=== PATIENT | female | born 1940 | race Caucasian/White ===

== ENCOUNTER 2016-08-04 08:07 | Outpatient (CLI) | payer MEDICARE, OTHER | END 2016-08-04 08:08 | disposition home or self-care (01) | DX: I10 Essential (primary) hypertension (principal); E78.2 Mixed hyperlipidemia; E67.3 Hypervitaminosis D; I77.9 Disorder of arteries and arterioles, unspecified; I67.9 Cerebrovascular disease, unspecified ==

== ENCOUNTER 2017-02-06 07:21 | Outpatient (CLI) | payer MEDICARE, OTHER ==
[2017-02-06 12:29] LABS: ALBUMIN/GLOBULIN RATIO 1.7 (1.0-2.2); BILIRUBIN,TOTAL 0.6 mg/dL (0.2-1.0); BUN - BLOOD UREA NITROGEN 30 mg/dL (6-20); CALCIUM 9.3 mg/dL (8.5-10.3); CARBON DIOXIDE - CO2 28 mmol/L (21-32); CHLORIDE 102 mmol/L (101-111); CHOL/HDL RATIO 1.9 (<4.4); CHOLESTEROL 167 mg/dL; CREATININE 1.1 mg/dL (0.4-1.0); GFR - MDRD 48 (>89); GLUCOSE 95 mg/dL (70-100); HDL CHOLESTEROL 90 mg/dL; LDL/HDL RATIO 0.8 (<4.4); POTASSIUM 4.3 mmol/L (3.5-5.0); SODIUM 139 mmol/L (135-145); TOTAL PROTEIN 6.5 g/dL (6.7-8.2); TRIGLYCERIDES 46 mg/dL; VLDL CHOLESTEROL 9 mg/dL
== END 2017-02-06 07:22 | disposition home or self-care (01) ==
LOC: LAB.F 07:21
PROVIDERS: ATTEND Internal Medicine Cardiovascular Disease
DX: E67.3 Hypervitaminosis D (principal); E78.5 Hyperlipidemia, unspecified
CPT/HCPCS: 36415; 80053; 80061; 82306

== ENCOUNTER 2017-10-13 07:08 | Outpatient (CLI) | payer MEDICARE, OTHER ==
[2017-10-13 11:01] LABS: ALBUMIN 3.9 g/dL (3.2-5.5); ALBUMIN/GLOBULIN RATIO 1.3 (1.0-2.2); ALKALINE PHOSPHATASE 45 IU/L (42-121); ALT ALANINE AMINOTRANSFERASE 17 IU/L (10-60); AST ASPARTATE AMINOTRANSFERASE 23 IU/L (10-42); BILIRUBIN,TOTAL 0.7 mg/dL (0.2-1.0); BUN - BLOOD UREA NITROGEN 27 mg/dL (6-20); CALCIUM 9.3 mg/dL (8.5-10.3); CARBON DIOXIDE - CO2 30 mmol/L (21-32); CHLORIDE 101 mmol/L (101-111); CHOL/HDL RATIO 1.9 (<4.4); CHOLESTEROL 145 mg/dL; CREATININE 0.9 mg/dL (0.4-1.0); GFR - MDRD 61 (>89); GLUCOSE 81 mg/dL (70-100); HDL CHOLESTEROL 77 mg/dL; LDL CHOLESTEROL,CALCULATED 52 mg/dL; LDL/HDL RATIO 0.7 (<4.4); SODIUM 138 mmol/L (135-145); TOTAL PROTEIN 6.8 g/dL (6.7-8.2); VLDL CHOLESTEROL 16 mg/dL
== END 2017-10-13 07:09 | disposition home or self-care (01) ==
LOC: LAB.F 07:08
PROVIDERS: ATTEND Internal Medicine Cardiovascular Disease
DX: E78.5 Hyperlipidemia, unspecified (principal); E67.3 Hypervitaminosis D
CPT/HCPCS: 36415; 80053; 80061; 82306; 83721

== ENCOUNTER 2018-06-16 10:54 | Emergency (ER) | payer MEDICARE, OTHER ==
[2018-06-16 11:05] VITALS: BP 182/87
[2018-06-16] MEDS ORDERED: predniSONE 20 MG TABLET PO STA (12:05)
--- NOTE | 2018-06-16 12:08 | ED Physician Documentation ---
History of Present Illness - Stated complaint Stated Complaint: POSS ALLERGIC REACTION - Chief complaint Chief Complaint: Heent - Additonal information Additional information: 77-year-old female presents to the emergency department with concern for an allergic reaction. The patient has multiple food allergies and recently ate a strawberry Thursday and both of which she is allergic to. Since then the patient reports a abnormal sensation in her throat. The patient denies any drooling, trouble swallowing, tongue swelling, hot potato voice or shortness of breath or skin changes. No improvement with Benadryl. No other associated s ymptoms. Symptoms are described as mild and ongoing for the past several days. Review of Systems Eyes: denies: Discharge Ears: denies: Ear pain Nose: denies: Congestion Throat: denies: Sore throat, Swollen tonsils, Swallowed foreign body Cardiac: denies: Chest pain / pressure Respiratory: denies: Cough GI: denies: Abdominal Pain Skin: denies: Rash PD PAST MEDICAL HISTORY - Past Medical History Cardiovascular: Hypertension, High cholesterol, Atrial fibrillation - Past Surgical History Past Surgical History: Yes - Present Medications Home Medications: Ambulatory Orders Medication Instructions Recorded Confirmed Alendronate [Fosamax] 70 mg PO Q7D 06/16/18 06/16/18 Apixaban [Eliquis] 5 mg PO BID 06/16/18 06/16/18 Beclomethasone Dipropionate 42 gm NS DAILY 06/16/18 06/16/18 [Beconase Aq] Estrogens, Conjugated [Premarin] 0.45 mg PO 06/16/18 Lorazepam [Ativan] 240 mg ORAL DAILY 06/16/18 06/16/18 Losartan [Cozaar] 50 mg PO DAILY 06/16/18 06/16/18 Metoprolol Tartrate 50 mg ORAL DAILY 06/16/18 06/16/18 diphenhydrAMINE [Benadryl] 25 mg PO DAILY PM 06/16/18 06/16/18 predniSONE [Prednisone] 40 mg PO DAILY #10 tablet 06/16/18 - Allergies Allergies/Adverse Reactions: Allergies Allergy/AdvReac Type Severity Reaction Status Date / Time amoxicillin Allergy Hives Verified 06/16/18 11:06 pear Allergy Hives Verified 06/16/18 11:06 Penicillins Allergy Hives Verified 06/16/18 11:05 strawberry Allergy Hives Verified 06/16/18 11:06 - Social History Does the pt smoke?: No Smoking Status: Never smoker Does the pt drink ETOH?: No Does the pt have substance abuse?: No - Immunizations Immunizations are current?: Yes PD ED PE NORMAL - General General: Alert and oriented X 3, No acute distress - HEENT HEENT: Atraumatic, PERRL, EOMI, Ears normal, Other (The tongue is within normal limits, posterior pharynx is within normal limits, there is no voice changes, stridor or trismus) - Cardiac Cardiac: RRR, Strong equal pulses - Derm Derm: Normal color - Extremities Extremities: No deformity - Neuro Neuro: Alert and oriented X 3, Normal speech - Psych Psych: Normal affect Results - Vitals Vitals: Vital Signs - 24 hr 06/16/18 11:01 Temperature 35.6 C L Heart Rate 84 Respiratory 14 Rate Blood Pressure 182/87 H O2 Saturation 97 Oxygen O2 Source Room air PD MEDICAL DECISION MAKING - ED course ED course: The patient appears to have a mild reaction to an allergen. The patient will be put on a course of steroids and appears appropriate for discharge and ongoing outpatient management. I discussed warning signs recommended returning to the emergency department immediately for any worsening or any concerns. Departure - Departure Disposition: 01 Home, Self Care Clinical Impression: Allergic reaction Qualifiers: Encounter type: initial encounter Qualified Code(s): T78.40XA - Allergy, unspecified, initial encounter Condition: Good Instructions: First Aid Allergic React, ED Allergic React Food Follow-Up: Sherwin Lunsford MD [Primary Care Provider] - Within 1 week Prescriptions: predniSONE [Prednisone] 40 mg PO DAILY #10 tablet Comments: Please return to the emergency department for any worsening or any concerns Discharge Date/Time: 06/16/18 12:28
== END 2018-06-16 12:28 | disposition home or self-care (01) ==
LOC: ED 10:54
DX: T78.40XA Allergy, unspecified, initial encounter (principal); X58.XXXA Exposure to other specified factors, initial encounter; I10 Essential (primary) hypertension; E78.00 Pure hypercholesterolemia, unspecified; Z91.02 Food additives allergy status
CPT/HCPCS: 99283; J7512

== ENCOUNTER 2019-02-15 07:57 | Outpatient (CLI) | payer MEDICARE, OTHER ==
[2019-02-15 10:05] LABS: ALBUMIN 4.3 g/dL (3.2-5.5); ALBUMIN/GLOBULIN RATIO 1.7 (1.0-2.2); ALKALINE PHOSPHATASE 38 IU/L (42-121); ALT ALANINE AMINOTRANSFERASE 15 IU/L (10-60); AST ASPARTATE AMINOTRANSFERASE 23 IU/L (10-42); BILIRUBIN,TOTAL 0.7 mg/dL (0.2-1.0); BUN - BLOOD UREA NITROGEN 25 mg/dL (6-20); CALCIUM 8.8 mg/dL (8.5-10.3); CARBON DIOXIDE - CO2 29 mmol/L (21-32); CHLORIDE 103 mmol/L (101-111); CHOL/HDL RATIO 1.9 (<4.4); CHOLESTEROL 145 mg/dL; GFR - MDRD 53 (>89); GLUCOSE 95 mg/dL (70-100); HDL CHOLESTEROL 75 mg/dL; LDL CHOLESTEROL,CALCULATED 58 mg/dL; LDL/HDL RATIO 0.8 (<4.4); SODIUM 144 mmol/L (135-145); TOTAL PROTEIN 6.8 g/dL (6.7-8.2); VLDL CHOLESTEROL 12 mg/dL
== END 2019-02-15 07:58 | disposition home or self-care (01) ==
LOC: DI 07:57
PROVIDERS: ATTEND Internal Medicine Cardiovascular Disease
DX: I48.0 Paroxysmal atrial fibrillation (principal); I48.92 Unspecified atrial flutter; I51.9 Heart disease, unspecified; I10 Essential (primary) hypertension; I65.23 Occlusion and stenosis of bilateral carotid arteries; I34.0 Nonrheumatic mitral (valve) insufficiency
CPT/HCPCS: 36415; 80053; 80061; 83721; 93306

== ENCOUNTER 2020-02-16 08:17 | Outpatient (CLI) | payer MEDICARE, OTHER ==
[2020-02-16 15:27] LABS: ALBUMIN 4.3 g/dL (3.2-5.5); ALBUMIN/GLOBULIN RATIO 1.5 (1.0-2.2); ALKALINE PHOSPHATASE 42 IU/L (42-121); ALT ALANINE AMINOTRANSFERASE 17 IU/L (10-60); AST ASPARTATE AMINOTRANSFERASE 24 IU/L (10-42); BILIRUBIN,TOTAL 0.7 mg/dL (0.2-1.0); BUN - BLOOD UREA NITROGEN 30 mg/dL (6-20); CALCIUM 9.2 mg/dL (8.5-10.3); CARBON DIOXIDE - CO2 29 mmol/L (21-32); CHLORIDE 104 mmol/L (101-111); CHOL/HDL RATIO 1.9 (<4.4); CHOLESTEROL 172 mg/dL; GLUCOSE 99 mg/dL (70-100); HDL CHOLESTEROL 89 mg/dL; LDL CHOLESTEROL,CALCULATED 60 mg/dL; LDL/HDL RATIO 0.7 (<4.4); SODIUM 140 mmol/L (135-145); TOTAL PROTEIN 7.1 g/dL (6.7-8.2); VLDL CHOLESTEROL 23 mg/dL
== END 2020-02-16 08:18 | disposition home or self-care (01) ==
LOC: LAB.S 08:17
PROVIDERS: ATTEND Internal Medicine Cardiovascular Disease
DX: E78.5 Hyperlipidemia, unspecified (principal); I25.10 Atherosclerotic heart disease of native coronary artery without angina pectoris
CPT/HCPCS: 36415; 80053; 80061; 83721

== ENCOUNTER 2020-08-11 09:19 | Outpatient (CLI) | payer MEDICARE, OTHER | END 2020-08-11 23:59 | disposition short-term general hospital (02) | LOC: EMS 09:19 | DX: R42 Dizziness and giddiness (principal); R53.1 Weakness | CPT/HCPCS: A0425; A0429 ==

== ENCOUNTER 2020-11-02 16:44 | Emergency (ER) | payer MEDICARE, OTHER ==
[2020-11-02 17:07] LABS: BASOPHILS # (AUTO) 0.1 10^3/uL (0.0-0.1); EOSINOPHILS # (AUTO) 0.6 10^3/uL (0.0-0.7); EOSINOPHILS % (AUTO) 8.4 %; HCT - HEMATOCRIT 33.9 % (37.0-47.0); HGB - HEMOGLOBIN 10.9 g/dL (12.0-16.0); LYMPHOCYTES # (AUTO) 1.1 10^3/uL (1.5-3.5); LYMPHOCYTES % (AUTO) 16.1 %; MEAN CORPUSCULAR HEMOGLOBIN 31.3 pg (27.0-31.0); MEAN CORPUSCULAR HGB CONC 32.2 g/dL (32.0-36.0); MEAN CORPUSCULAR VOLUME 97.4 fL (81.0-99.0); MONOCYTES # (AUTO) 0.7 10^3/uL (0.0-1.0); MONOCYTES % (AUTO) 9.6 %; NEUTROPHILS # (AUTO) 4.6 10^3/uL (1.5-6.6); NEUTROPHILS % (AUTO) 64.5 %; PLT - PLATELET COUNT 326 10^3/uL (130-450); RED BLOOD COUNT 3.48 10^6/uL (4.20-5.40); RED CELL DISTRIBUTION WIDTH 13.5 % (12.0-15.0); WHITE BLOOD COUNT 7.1 x10^3/uL (4.8-10.8)
[2020-11-02 17:21] LABS: ALBUMIN 4.2 g/dL (3.2-5.5); ALBUMIN/GLOBULIN RATIO 1.6 (1.0-2.2); BILIRUBIN,TOTAL 0.6 mg/dL (0.2-1.0); CREATININE 1.3 mg/dL (0.4-1.0); POTASSIUM 4.3 mmol/L (3.5-5.0); TOTAL PROTEIN 6.8 g/dL (6.7-8.2)
--- NOTE | 2020-11-02 17:42 | ED Physician Documentation ---
History of Present Illness - Stated complaint Stated Complaint: LOW BLOOD PRESSURE - Chief complaint Chief Complaint: Trauma Hd/Nk - History obtained from History obtained from: Patient, Family - History of Present Illness Timing: Today Pain level max: 3 Pain level now: 0 - Additonal information Additional information: Patient is an 80-year-old female who had a cardiac ablation done 8 days ago for atrial fibrillation. She is currently on Eliquis, metoprolol and diltiazem in addition to her normal medications. She felt lightheaded, dizzy and fell backwards today, striking her head on the ground. She is not having any chest pain or shortness of breath. Has a slight headache. Nothing makes it better or worse. No neck or back pain. Review of Systems Ten Systems: 10 systems reviewed and negative Constitutional: denies: Fever, Chills Cardiac: denies: Chest pain / pressure Respiratory: denies: Dyspnea, Cough GI: denies: Nausea, Vomiting, Diarrhea Skin: denies: Rash Musculoskeletal: denies: Neck pain Neurologic: denies: Headache PD PAST MEDICAL HISTORY - Past Medical History Past Medical History: Yes Cardiovascular: Hypertension, High cholesterol, Atrial fibrillation - Past Surgical History Past Surgical History: Yes /[employer]: Hysterectomy Cardiovascular: Other HEENT: Tonsil/Adenoidectomy - Present Medications Home Medications: Ambulatory Orders Medication Instructions Recorded Confirmed Alendronate [Fosamax] 70 mg PO Q7D 06/16/18 06/16/18 Apixaban [Eliquis] 5 mg PO BID 06/16/18 06/16/18 Beclomethasone Dipropionate 42 gm NS DAILY 06/16/18 06/16/18 [Beconase Aq] Estrogens, Conjugated [Premarin] 0.45 mg PO 06/16/18 Lorazepam [Ativan] 0.25 mg ORAL DAILY PRN 06/16/18 06/16/18 Losartan [Cozaar] 50 mg PO BID 06/16/18 06/16/18 Metoprolol Tartrate 50 mg ORAL BID 06/16/18 06/16/18 diphenhydrAMINE [Benadryl] 50 mg PO DAILY PM 06/16/18 06/16/18 Atorvastatin [Lipitor] 20 mg ORAL DAILY 11/02/20 11/02/20 Cholecalciferol [Vitamin D3] 5,000 unit ORAL DAILY 11/02/20 11/02/20 Furosemide [Lasix] 20 mg PO DAILY 11/02/20 11/02/20 Pantoprazole [Protonix] 40 mg PO DAILY 11/02/20 11/02/20 Potassium Chloride [K-Dur] 20 meq PO ONCE 11/02/20 11/02/20 dilTIAZem HCL [Diltiazem 24Hr ER 240 mg PO DAILY 11/02/20 11/02/20 (Xr)] - Allergies Allergies/Adverse Reactions: Allergies Allergy/AdvReac Type Severity Reaction Status Date / Time amoxicillin Allergy Hives Verified 11/02/20 16:53 pear Allergy Hives Verified 11/02/20 16:53 Penicillins Allergy Hives Verified 11/02/20 16:53 strawberry Allergy Hives Verified 11/02/20 16:53 - Social History Does the pt smoke?: No Smoking Status: Never smoker Does the pt drink ETOH?: No Does the pt have substance abuse?: No - Immunizations Immunizations are current?: Yes PD ED PE NORMAL - Vitals Vital signs reviewed: Yes - General General: Alert and oriented X 3, No acute distress, Well developed/nourished - HEENT HEENT: PERRL, Moist mucous membranes - Neck Neck: Supple, no meningeal sign - Cardiac Cardiac: RRR, No murmur, No gallop, No rub - Respiratory Respiratory: No respiratory distress, Clear bilaterally - Abdomen Abdomen: Soft, Non tender, Non distended - Back Back: No spinal TTP - Derm Derm: Warm and dry, No rash - Extremities Extremities: No edema, No calf tenderness / cord - Neuro Neuro: Alert and oriented X 3 - Psych Psych: Normal mood, Normal affect Results - Vitals Vitals: Vital Signs - 24 hr 11/02/20 11/02/20 11/02/20 16:53 17:28 18:30 Temperature 36.3 C L Heart Rate 55 L 54 L 58 L Respiratory 18 18 16 Rate Blood Pressure 116/65 112/68 119/63 O2 Saturation 100 99 97 Oxygen O2 Source Room air - EKG (time done) 1702 Rate: Rate (enter#) (53) Rhythm: NSR [place]: Normal Intervals: Normal CT QRS: Normal Ischemia: Normal ST segments - Labs Labs: Laboratory Tests 11/02/20 11/02/20 17:00 17:00 WBC 7.1 RBC 3.48 L Hgb 10.9 L Hct 33.9 L MCV 97.4 MCH 31.3 H MCHC 32.2 RDW 13.5 Plt Count 326 MPV 10.0 Neut # (Auto) 4.6 Lymph # (Auto) 1.1 L [place] # (Auto) 0.7 Eos # (Auto) 0.6 Baso # (Auto) 0.1 Absolute Nucleated RBC 0.00 Nucleated RBC % 0.0 Sodium 139 Potassium 4.3 Chloride 101 Carbon Dioxide 27 Anion Gap 11.0 BUN 41 H Creatinine 1.3 H Estimated GFR (MDRD) 39 L Glucose 107 H Calcium 9.0 Total Bilirubin 0.6 AST 19 ALT 15 Alkaline Phosphatase 50 Total Protein 6.8 Albumin 4.2 Globulin 2.6 Albumin/Globulin Ratio 1.6 Lipase 75 H PD MEDICAL DECISION MAKING - ED course Complexity details: reviewed results, re-evaluated patient, considered differential, d/w patient ED course: No acute findings on laboratory testing, EKG. Bedside ultrasound of the heart does not reveal any pericardial effusion. Discussed the case with her web page designer, Dr. Mixon, he recommends stopping her diltiazem 240 mg ER daily. She can continue the metoprolol 50 mg p.o. twice daily. Patient was bradycardic here. Likely that the patient had bradycardia and hypotension today leading to her near syncopal event. states her heart rate was around 40 after the event. Patient will be signed out to the [facility] emergency department physician awaiting final disposition when the CT scans are back. This document was made in part using voice recognition software. While efforts are made to proofread this document, sound alike and grammatical errors may occur. Departure - Departure Clinical Impression: Sinus bradycardia Closed head injury Qualifiers: Encounter type: initial encounter Qualified Code(s): S09.90XA - Unspecified injury of head, initial encounter Condition: Good Instructions: ED Head Injury Closed Follow-Up: Kumar Diaz MD [Primary Care Provider] - Within 1 week Comments: Continue the metoprolol 50 mg by mouth twice daily. Return if you worsen. I spoke with your web page designer tonight and we will stop your diltiazem completely. Your laboratory testing and imaging studies do not show any acute abnormalities tonight.
--- NOTE | 2020-11-02 19:18 | CT Report ---
PROCEDURE: HEAD WO INDICATIONS: head injury, pt on eliquis TECHNIQUE: Noncontrast 4.5 mm thick angled axial sections acquired from the foramen magnum to the vertex. For r adiation dose reduction, the following was used: automated exposure control, adjustment of mA and/or kV according to patient size. COMPARISON: None. FINDINGS: Image quality: Excellent. CSF spaces: Basal cisterns are patent. No extra-axial fluid collections. Ventricles are normal in size and shape. Brain: No midline shift. No intracranial masses or hemorrhage. Cruz-white matter interface is norm al. Skull and face: Calvarium and visualized facial bones are intact, without suspicious lesions. Sinuses: Visualized sinuses and mastoids are clear. IMPRESSION: No trauma found. No intracranial hemorrhage present. Reviewed by: Cedrick Jenkins MD on 11/02/2020 7:17 PM PDT Approved by: Cedrick Jenkins MD on 11/02/2020 7:17 PM PDT Station ID: [id number]
--- NOTE | 2020-11-02 19:18 | CT Report ---
PROCEDURE: CERVICAL SPINE WO INDICATIONS: fall, head/neck pain TECHNIQUE: Noncontrast 3 mm thick sections acquired from the skull base to the T4 level. Sagittal and coronal r eformats were then constructed. For radiation dose reduction, the following was used: automated exp osure control, adjustment of mA and/or kV according to patient size. COMPARISON: None. FINDINGS: Image quality: Excellent. Bones: No fractures or dislocations. Visualized superior ribs are intact. Soft tissues: Prevertebral soft tissues are normal in thickness. No paravertebral hematomas. No ap ical pneumothoraces. IMPRESSION: No trauma found. Reviewed by: Cedrick Jenkins MD on 11/02/2020 7:16 PM PDT Approved by: Cedrick Jenkins MD on 11/02/2020 7:16 PM PDT Station ID: [id number]
--- NOTE | 2020-11-02 19:27 | ED Physician Documentation ---
ED Addendum - Addendum Addendum: 11/02/20 19:26 Patient endorsed to me by Dr. Emanuel awaiting final CT reads. CT head and neck unremarkable. Patient will stop her diltiazem according to cardiology recs. Return precautions given. Plan to follow-up with cardiology outpatient. Impression 1 sinus bradycardia 2. fall
[2020-11-02 19:32] VITALS: BP 121/68
== END 2020-11-02 19:55 | disposition home or self-care (01) ==
LOC: ED 16:44
DX: R00.1 Bradycardia, unspecified (principal); R55 Syncope and collapse; S09.90XA Unspecified injury of head, initial encounter; W18.39XA Other fall on same level, initial encounter; Y92.007 Garden or yard of unspecified non-institutional (private) residence as the place of occurrence of the external cause; I48.91 Unspecified atrial fibrillation; Z79.01 Long term (current) use of anticoagulants; Z98.890 Other specified postprocedural states; I10 Essential (primary) hypertension
CPT/HCPCS: 36415; 80053; 83690; 85025; 93005; 99284

== ENCOUNTER 2021-05-23 16:44 | Outpatient (CLI) | payer MEDICARE, OTHER ==
--- NOTE | 2021-05-23 17:02 | XRAY Report ---
PROCEDURE: Lumbar Spine 2 View INDICATIONS: LOW BACK PAIN TECHNIQUE: 2 views of the lumbar spine were acquired. COMPARISON: None. FINDINGS: Bones: 5 [id number] vertebrae are present. There is severe rightward curvature of the upper destiny mbar spine. Multilevel disc space narrowing and endplate osteophyte formation. Facet hypertrophy thro ughout the mid and lower lumbar spine. Mild grade 1 retrolisthesis of L2 on L3 and L3 on L4. No verte bral body compression fractures. No suspicious bony lesions. Soft tissues: Overlying bowel gas pattern is normal. No suspicious soft tissue calcifications. IMPRESSION: 1. Rightward curvature of the upper lumbar spine. 2. Multilevel degenerative disc and facet disease. Reviewed by: Komal Souza MD on 05/23/2021 5:00 PM PST Approved by: Komal Souza MD on 05/23/2021 5:00 PM PST Station ID: [id number]
== END 2021-05-23 16:45 | disposition home or self-care (01) ==
LOC: DI.S 16:44
PROVIDERS: ATTEND Physician Assistant
DX: M47.816 Spondylosis without myelopathy or radiculopathy, lumbar region (principal); M43.16 Spondylolisthesis, lumbar region; M51.36 Other intervertebral disc degeneration, lumbar region

== ENCOUNTER 2021-08-22 07:26 | Outpatient (CLI) | payer MEDICARE, OTHER ==
[2021-08-22 16:29] LABS: ALBUMIN/GLOBULIN RATIO 1.7 (1.0-2.2); ALKALINE PHOSPHATASE 37 IU/L (42-121); ALT ALANINE AMINOTRANSFERASE 15 IU/L (10-60); AST ASPARTATE AMINOTRANSFERASE 19 IU/L (10-42); BILIRUBIN,TOTAL 0.6 mg/dL (0.2-1.0); BUN - BLOOD UREA NITROGEN 34 mg/dL (6-20); CALCIUM 9.1 mg/dL (8.5-10.3); CARBON DIOXIDE - CO2 33 mmol/L (21-32); CHLORIDE 100 mmol/L (101-111); CHOL/HDL RATIO 2.3 (<4.4); CHOLESTEROL 157 mg/dL; GFR - MDRD 53 (>89); GLUCOSE 92 mg/dL (70-100); HDL CHOLESTEROL 69 mg/dL; LDL CHOLESTEROL,CALCULATED 62 mg/dL; LDL/HDL RATIO 0.9 (<4.4); POTASSIUM 4.1 mmol/L (3.5-5.0); SODIUM 138 mmol/L (135-145); TOTAL PROTEIN 6.4 g/dL (6.7-8.2); TRIGLYCERIDES 129 mg/dL; VLDL CHOLESTEROL 26 mg/dL
== END 2021-08-22 07:27 | disposition home or self-care (01) ==
LOC: LAB.S 07:26
PROVIDERS: ATTEND Internal Medicine Cardiovascular Disease
DX: E78.5 Hyperlipidemia, unspecified (principal)
CPT/HCPCS: 36415; 80053; 80061; 83721

== ENCOUNTER 2021-10-29 11:31 | Outpatient (CLI) | payer MEDICARE, OTHER ==
--- NOTE | 2021-10-29 17:31 | XRAY Report ---
PROCEDURE: Chest 2 View X-Ray INDICATIONS: COUGH TECHNIQUE: 2 view(s) of the chest. COMPARISON: None. FINDINGS: Surgical changes and devices: None. Lungs and pleura: No pleural effusions or pneumothorax. Lungs are clear. Mediastinum: Mediastinal contours are normal. Heart size is normal. Bones and chest wall: No suspicious bony abnormalities. Soft tissues appear unremarkable. IMPRESSION: No acute cardiopulmonary findings. Reviewed by: Kallie Greenberg MD on 10/29/2021 5:29 PM PDT Approved by: Kallie Greenberg MD on 10/29/2021 5:29 PM PDT Station ID: [id number]
== END 2021-10-29 11:32 | disposition home or self-care (01) ==
LOC: DI.S 11:31
PROVIDERS: ATTEND Nurse Practitioner Family
DX: R05.9 Cough, unspecified (principal)

== ENCOUNTER 2021-11-08 13:38 | Outpatient (CLI) | payer MEDICARE, OTHER | END 2021-11-08 13:39 | disposition home or self-care (01) | LOC: RT 13:38 | PROVIDERS: ATTEND Nurse Practitioner Family | DX: R05.9 Cough, unspecified (principal) | CPT/HCPCS: 94010 ==

== ENCOUNTER 2021-12-19 14:05 | Outpatient (CLI) | payer MEDICARE, OTHER ==
--- NOTE | 2021-12-19 15:37 | DEXA Report ---
PROCEDURE: Dexa Spine and/or Hip INDICATIONS: OSTEOPOROSIS TECHNIQUE: Dual energy x-ray absorptiometry (DXA) was performed on a [employer] System. Regions measur ed are the AP Spine, femoral neck, and if needed forearm. COMPARISON: None. FINDINGS: Lumbar Spine: Bone Mineral Density 1.194 g/cm/cm,T score 1.0 Left Hip: Bone Mineral Density 0.862 g/cm/cm,T score -1.2 Left Femoral Neck: Bone Mineral Density neuro 0.819 g/cm/cm, T score -1.6 (T score greater or equal to -1.0: NORMAL) (T score from -1.1 to -2.4: OSTEOPENIA) (T score less than or equal to -2.5 to: OSTEOPOROSIS) Impression: 1. Osteopenia of the left hip. Patients with diagnosis of osteoporosis or osteopenia should have regular bone mineral density assess ment. For those eligible for Medicare, routine testing is allowed once every 2 years. Testing frequ ency can be increased for patients who have rapidly progressing disease or for those who are receivin g medical therapy to restore bone mass. Reviewed by: Kallie Greenberg MD on 12/19/2021 3:36 PM PDT Approved by: Kallie Greenberg MD on 12/19/2021 3:36 PM PDT Station ID: [id number]
== END 2021-12-19 14:06 | disposition home or self-care (01) ==
LOC: DI 14:05
PROVIDERS: ATTEND Nurse Practitioner Family
DX: M85.88 Other specified disorders of bone density and structure, other site (principal)

== ENCOUNTER 2022-03-24 09:35 | Outpatient (CLI) | payer MEDICARE, OTHER ==
[2022-03-24 15:34] LABS: ALBUMIN/GLOBULIN RATIO 1.4 (1.0-2.2); ALKALINE PHOSPHATASE 49 IU/L (42-121); ALT ALANINE AMINOTRANSFERASE 28 IU/L (10-60); AST ASPARTATE AMINOTRANSFERASE 24 IU/L (10-42); BILIRUBIN,TOTAL 0.8 mg/dL (0.2-1.0); BUN - BLOOD UREA NITROGEN 30 mg/dL (6-20); CALCIUM 9.5 mg/dL (8.5-10.3); CARBON DIOXIDE - CO2 30 mmol/L (21-32); CHLORIDE 103 mmol/L (101-111); CHOL/HDL RATIO 2.4 (<4.4); CHOLESTEROL 172 mg/dL; CREATININE 0.9 mg/dL (0.4-1.0); GFR - MDRD 60 (>89); GLUCOSE 98 mg/dL (70-100); HDL CHOLESTEROL 72 mg/dL; LDL CHOLESTEROL,CALCULATED 84 mg/dL; LDL/HDL RATIO 1.2 (<4.4); POTASSIUM 4.5 mmol/L (3.5-5.0); SODIUM 142 mmol/L (135-145); TOTAL PROTEIN 6.8 g/dL (6.7-8.2); TRIGLYCERIDES 78 mg/dL; VLDL CHOLESTEROL 16 mg/dL
== END 2022-03-24 09:36 | disposition home or self-care (01) ==
LOC: LAB.S 09:35
PROVIDERS: ATTEND Internal Medicine Cardiovascular Disease
DX: E78.5 Hyperlipidemia, unspecified (principal)
CPT/HCPCS: 36415; 80053; 80061; 83721

== ENCOUNTER 2022-05-06 14:33 | Outpatient (CLI) | payer MEDICARE, OTHER | END 2022-05-06 14:34 | disposition home or self-care (01) | LOC: LAB 14:33 | PROVIDERS: ATTEND Surgery | DX: C67.6 Malignant neoplasm of ureteric orifice (principal); Z20.822 Contact with and (suspected) exposure to COVID-19 ==